=== PATIENT | female | born 1980 | race Caucasian/White ===

== ENCOUNTER 2016-06-17 08:23 | Inpatient (IN) | payer OTHER ==
[~2016-06-17] VITALS: Ht 162.6 cm; Wt 85.8 kg
[~2016-06-17 08:23] MED LIST: ACET325T45 PO
[2016-06-17 08:27] VITALS: Ht 162.6 cm; Wt 85.8 kg
[2016-06-17 09:00] VITALS: BP 140/86; PULSE 81; RESP 18
[2016-06-17] MEDS ORDERED: LACTATED RINGER'S 1,000 ML IV ONE ×2 (09:30→16:00)
[2016-06-17] MEDS ORDERED: TERBUTALINE 1 MG/ML INJ SC PRN (09:30)
[2016-06-17 09:38] LABS: URINE BLOOD (Dip) POC Trace-intact (NEGATIVE)
[2016-06-17 10:26] LABS: ADD UMIC YES; URINE BILIRUBIN (Dip) NEGATIVE (NEGATIVE); URINE BLOOD (Dip) NEGATIVE (NEGATIVE); URINE COLOR LT. YELLOW (YELLOW); URINE GLUCOSE (Dip) NEGATIVE (NEGATIVE); URINE KETONES (Dip) NEGATIVE (NEGATIVE); URINE LEUKOCYTE ESTERASE (Dip) TRACE (NEGATIVE); URINE NITRITE (Dip) NEGATIVE (NEGATIVE); URINE TOTAL PROTEIN (Dip) NEGATIVE (NEGATIVE); URINE UROBILINOGEN (Dip) 0.2 E.U./dL (0.1-1.0)
[2016-06-17 11:00] LABS: BACTERIA,URINE FEW; SQUAMOUS EPITHELIAL CELL,UR MODERATE; URINE RBCS NONE SEEN /HPF (0)
[2016-06-17] MEDS ORDERED: LACTATED RINGER'S 1,000 ML IV SCH (11:00)
[2016-06-17] MEDS ORDERED: OXYTOCIN 30 UNITS/LR 500 ML IV PRN (13:30)
[2016-06-17] MEDS ORDERED: MISOPROSTOL 200 MCG TAB PR PRN (13:30)
[2016-06-17] MEDS ORDERED: CEFAZOLIN 2 GM/50 ML (PMX) 50 ML IV SCH (13:30)
[2016-06-17] MEDS ORDERED: CARBOPROST 250 MCG INJ IM PRN (13:30)
[2016-06-17] MEDS ORDERED: METHYLERGONOVINE 0.2 MG INJ IM PRN (13:30)
[2016-06-17] MEDS ORDERED: OXYTOCIN 30 UNITS/LR 500 ML IV SCH (13:30)
[2016-06-17 14:15] LABS: BASOPHILS % 0.2 % (0.0-2.0); EOSINOPHILS % 0.3 % (0.0-7.0); HEMATOCRIT 38.2 % (37.0-47.0); HEMOGLOBIN 12.9 g/dl (12.0-16.0); LYMPHOCYTES # 1.8 10^3/ul (0.8-2.9); LYMPHOCYTES % 15.3 % (15.0-51.0); MEAN CORPUSCULAR HEMOGLOBIN 31.2 pg (29.0-33.0); MEAN CORPUSCULAR HGB CONC 33.8 g/dl (32.0-37.0); MEAN CORPUSCULAR VOLUME 92.4 fl (82.0-101.0); MEAN PLATELET VOLUME 7.8 fl (7.4-10.4); MONOCYTE # 0.7 10^3/ul (0.3-0.9); MONOCYTES % 6.2 % (0.0-11.0); NEUTROPHIL # 9.3 10^3/ul (1.6-7.5); PLATELET COUNT 279 10^3/UL (140-440); RED BLOOD COUNT 4.13 10^6/ul (4.20-5.40); RED CELL DISTRIBUTION WIDTH 12.9 % (11.5-14.5); UNCORRECTED WBC 11.9 10^3/ul (4.8-10.8); WHITE BLOOD COUNT 11.9 10^3/ul (4.8-10.8)
[2016-06-17 14:16] LABS: CONDITION 1
[2016-06-17 14:24] LABS: INR 0.91; PROTIME 12.2 Sec (12.2-14.2)
[2016-06-17 14:25] LABS: PARTIAL THROMBOPLASTIN TIME 26.4 Sec (25.0-35.0)
--- NOTE | 2016-06-17 14:36 | TRIAGE ---
OB Triage Datetime Report Generated by CPN: 06/17/2016 14:36 Datetime: 06/17/2016 12:53 Decelerations: Prolonged Category: Category II Comments: Prolonged decel lasting 180 seconds with daniella to 85 with FHR returning to baseline with minimal variability and greater than 15x15 accels. Pt repositioned far left lateral, Nonrebreather 10L applied, 300cc LR bolus started. Will continue to monitor pt closely. Datetime: 06/17/2016 12:05 Labor Evaluation Frequency: 2-12 Monitor Mode: External Duration (sec)2399: 50-100 Quality: Moderate Pattern: Normal: <= 5 Contractions in 10 Minutes Resting Tone [place]: Relaxed Heart Rate FHR Baseline Rate: 135 Monitor Mode: External US FHR Baseline Changes: No Baseline Change Variability: Moderate 6-25 bpm Accelerations: 15X15 Decelerations: None Category: Category I Pain Assessment Pain Scale: 4 Pain Presence: Intermittent Pain Type: Contraction; Pressure Pain Location: Back Pain Goal: 0 Pain Relief Measures: Comfort Measures Datetime: 06/17/2016 11:04 Labor Evaluation Frequency: 3-10 Monitor Mode: External Duration (sec)2399: 50-100 Quality: Moderate Pattern: Normal: <= 5 Contractions in 10 Minutes Resting Tone [place]: Relaxed Heart Rate FHR Baseline Rate: 135 Monitor Mode: External US FHR Baseline Changes: No Baseline Change Variability: Moderate 6-25 bpm Accelerations: 15X15 Decelerations: None Category: Category I Pain Assessment Pain Scale: 5 Pain Presence: Intermittent Pain Type: Contraction; Pressure Pain Location: Back Pain Goal: 2 Pain Relief Measures: Comfort Measures Datetime: 06/17/2016 10:37 Comments: US detecting FHR due to pt movement when MD entered room. US readjusted. Datetime: 06/17/2016 10:04 Labor Evaluation Frequency: 3-13 Monitor Mode: External Duration (sec)2399: 60-140 Quality: Moderate Pattern: Normal: <= 5 Contractions in 10 Minutes Resting Tone [place]: Relaxed Heart Rate FHR Baseline Rate: 135 Monitor Mode: External US FHR Baseline Changes: No Baseline Change Variability: Moderate 6-25 bpm Accelerations: 15X15 Decelerations: None Category: Category I Pain Assessment Pain Scale: 6 Pain Presence: Intermittent Pain Type: Contraction; Pressure Pain Location: Back Pain Goal: 2 Pain Relief Measures: Comfort Measures Datetime: 06/17/2016 09:51 Monitor Mode: External US Datetime: 06/17/2016 09:04 Labor Evaluation Frequency: 2-8 Monitor Mode: External Duration (sec)2399: 30-80 Quality: Moderate Pattern: Normal: <= 5 Contractions in 10 Minutes Resting Tone [place]: Relaxed Contraction Comments: Uterine irritability Heart Rate FHR Baseline Rate: 135 Monitor Mode: External US FHR Baseline Changes: No Baseline Change Variability: Moderate 6-25 bpm Accelerations: 15X15 Decelerations: None Category: Category I Pain Assessment Pain Scale: 6 Pain Presence: Intermittent Pain Type: Contraction; Pressure Pain Location: Back Pain Goal: 0 Pain Relief Measures: Comfort Measures Datetime: 06/17/2016 08:35 Vaginal Exam Dilatation (cms): 0.0 Effacement (%): 0 Station: -2 Exam By: Shante ABRAHAM Membrane Status: Intact Datetime: 06/17/2016 08:33 EGA: 38.4 Contractions: Denies/Absent Rupture of Membranes: Denies Vaginal Discharge: Denies Datetime: 06/17/2016 08:31 Monitor Mode: External US Datetime: 06/17/2016 08:30 Assessment Type: Triage Maternal Assessment Level of Consciousness: Fully Conscious DTR's/Clonus: DTRs 2+; No Clonus Headache: Denies Blurred Vision: No Respiratory Effort: Unlabored; Regular Rhythm; Equal Expansion Breath Sounds, Left: Clear and Equal Breath Sounds, Right: Clear and Equal Nausea/Vomiting: Denies RUQ Epigastric Pain: Denies Lower Extremities Edema: Bilateral Lower Extremities Degree: 1+ Upper Extremities Edema: None Degree: None Facial Edema: None Fall Risk Assessment History of Falling: (0) No Secondary Diagnosis: (0) No Ambulatory Aid: (0) Bedrest/Nurse Assist IV Therapy: (0) No Gait: (0) Normal/Bedrest/Immobile Mental Status: (0) Oriented to Own Ability Fall Score: 0 Fall Risk Score Definition: No Risk: No action required Datetime: 06/17/2016 08:28 Time of Arrival: 06/17/2016 08:19 Arrived By: Wheelchair Arrived From: Emergency Dept Chief Complaint: UC Movement: Present Contractions: Denies/Absent Rupture of Membranes: Denies Vaginal Discharge: Denies Recent Sexual Intercouse: Denies Abdominal Trauma: Not Applicable Patient Complaints: Contractions Time Provider Notified: 06/17/2016 08:57 Provider Notified: [facility] Initial Plan: IV hydration, Terbutaline 0.25mg SC x2 PRN, UA, Urine culture Datetime: 06/17/2016 08:24 Stage of : OB Triage
[2016-06-17] MEDS ORDERED: ONDANSETRON 4 MG INJ IV STA (15:53)
[2016-06-17] MEDS ORDERED: CITRIC ACID/NA CITRATE 30 ML CUP PO ONE (16:00)
[2016-06-18] MEDS: LACTATED RINGER'S 1,000 ML IV SCH ×3 (07:07→09:43)
[2016-06-18] MEDS ORDERED: EPHEDrine SULFATE 50 MG/5 ML SYG ONE (10:04)
[2016-06-18] MEDS ORDERED: morphine SULFATE/PF (10 MG/10 ML) INJ ONE (10:05)
[2016-06-18] MEDS ORDERED: PHENYLephrine (100 MCG/ML) 5ML SYG ONE ×2 (10:05→10:53)
[2016-06-18] MEDS ORDERED: FENTAnyl 50 MCG/ML VIAL ONE (10:05)
[2016-06-18] MEDS ORDERED: ONDANSETRON 4 MG INJ ONE (10:22)
[2016-06-18] MEDS ORDERED: DIPHENHYDRAMINE 50 MG INJ ONE (10:22)
[2016-06-18] MEDS ORDERED: PROPOFOL 20 ML ONE (11:11)
[2016-06-18] MEDS ORDERED: DIPHENHYDRAMINE 50 MG INJ IV PRN (11:30)
[2016-06-18] MEDS ORDERED: ONDANSETRON 4 MG INJ IV PRN (11:30)
[2016-06-18] MEDS ORDERED: ZOLPIDEM 5 MG TAB PO PRN (11:30)
[2016-06-18] MEDS ORDERED: HYDROmorphONE 1 MG/ML SYG IV PRN (11:30)
[2016-06-18] MEDS ORDERED: NALOXONE (0.4 MG/ML) INJ IV PRN (11:30)
--- NOTE | 2016-06-18 12:03 | HP ---
Date/Time of Note Date/Time of Note DATE: 06/18/16 TIME: 11:38 OB - History Hx of Present Free Text/Dictation This is a 36 years old female admitted to [facility] on June 17 due to a 2-1/2 minutes variable deceleration for extended observation this patient originally was scheduled for repeat and bilateral tubal ligation at her 39 weeks of gestation , due to this prolonged variable deceleration perinatologist recommends delivery at this time which makes the gestational age 38 weeks 5/ 7 day. She has been counseled regarding the delivery for the third time and bilateral tubal ligation the failure rate ,increased risk of ectopic future failure to conceive, also complication of including but not limited to bowel and bladder injury ,infection wound hematoma she would like to proceed with the operation. This patient has been under the care of [facility] and her was not complicated with gestational diabetes -induced hypertension or any other surgical or medical conditions Denies allergy to any known medication Denies a smoking or drinking Family history, unremarkable Review of system within normal Physical examination 5 feet 4 inches tall 85 kg Temperature 98.5 pulse 82 respiration 18 blood pressure 120/71 Head ears nose and throat negative Neck, supple no thyromegaly Lungs clear to P&A Heart, normal sinus rhythm no murmur Abdomen fundal height from symphysis pubis to the height of the fundus 38 cm heart rate category 1 mild contraction 2-12 minutes Pelvic examination, deferred Extremity, no edema no varicosities Impression intrauterine at 38 weeks 5/7 day history of 2 previous section request for voluntary sterilization bilateral tubal ligation patient has been counseled regarding the failure rate of tubal ligation increased risk of ectopic and future failure to conceive and complication that may arise from the surgery including but not limited to bowel and bladder injury wound infection and hematoma and patient would like to proceed with the surgery Estimated Due Date: Jun 26, 2016 : 3 Para: 2 Care: Good Care Ultrasounds: Normal mid trimester US Obstetrical Complications: None Medical Complications: None Past Family/Social History * Past Medical, Surgical, Family and Obstetric Histories reviewed from chart. Rubella: immune RPR/VDRL: Negative GBS Status: Negative HBsAG: Negative OB Admission Exam Vital Signs Vital Signs Vital Signs Date Time Temp Pulse Resp B/P Pulse Ox O2 Delivery O2 Flow Rate FiO2 1/25/17 09:00 97.7 81 18 140/86 Room Air Physical Exam HEENT: WNL Heart: Rhythm Normal Lungs: Clear, Equal Abdomen: WNL Extremities: Normal Cervical Dilatation: None Effacement: 0% Membranes: Intact Heart Rate: 130's Decelerations: Variable Decelerations Contractions on Admission: None Last 72 hours Lab Results CBC & BMP 06/17/16 13:50 MARICARMEN AUSTIN MD Jun 18, 2016 12:01
--- NOTE | 2016-06-18 12:28 | DELSUM ---
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 Babies in Womb: 1 Attempted: No Labor Anesthesia: None LABOR INFORMATION Reason for Induction: Not Applicable Oxytocin: N/A Group B Beta Strep: Negative Antibiotics # of Doses: 1 Antibiotics Time of Last Dose: 1025 Steroids Given: None Reason Steroids Not Administered: Not Applicable MEMBRANES Membranes Rupture Method: Artificial Rupture of Membranes: 06/18/2016 10:35 Length of Rupture (hr): 0.02 Amniotic Fluid Color: Clear Amniotic Fluid Amount: Moderate Amniotic Fluid Odor: Normal STAGES OF LABOR Stage 3 hr: 0 Stage 3 min: 1 VAGINAL DELIVERY Episiotomy: None Laceration Extension: N/A Laceration Type: None CSECTION DELIVERY Primary Indication: Repeat Elective Secondary Indication: Prolong Decel Phase CSection Urgency: Elective CSection Incidence: Repeat Labor: N/A Elective: Elective CSection Incision: Lower Uterine Transverse Sterilization Procedure: Emily BABY A INFORMATION Infant Delivery Date/Time: 06/18/2016 10:36 Method of Delivery: Born in Route : No : N/A Forceps: N/A Vacuum Extraction: N/A Shoulder Dystocia : N/A SHOULDER DYSTOCIA BABY A Delivery Date/Time: 06/18/2016 10:36 PRESENTATION/POSITION BABY A Presentation: Cephalic Cephalic Presentation: Vertex Vertex Position: Left Occipital Anterior Breech Presentation: N/A PLACENTA INFORMATION BABY A Placenta Delivery Time : 06/18/2016 10:37 Placenta Method of Delivery: Manual Removal Placenta Status: Delivered SCORES BABY A Heart Rate 1 min: >100 bpm Resp Effort 1 min: Good Cry Reflex Irritability 1 min: Cough/Sneeze/Pulls Away Muscle Tone 1 min: Active Motion Color 1 min: Body [place], Extremit Blue Resuscitation Effort 1 min: Tactile Stimulation SCORE 1 MIN: 9 Heart Rate 5 min: >100 bpm Resp Effort 5 min: Good Cry Reflex Irritability 5 min: Cough/Sneeze/Pulls Away Muscle Tone 5 min: Active Motion Color 5 min: Body [place], Extremit Blue Resuscitation Effort 5 min: Tactile Stimulation SCORE 5 MIN: 9 INFORMATION BABY A Gestational Age at Delivery: 38.5 Gestational Status: Early Term- 37- 38.6 Weeks Outcome : Liveborn Condition : Stable Sex: Male IDENTIFICATION/MEDS BABY A ID Band Number: [id number] ID Band Location: Right Leg; Left Arm Sensor Applied: Yes Sensor Number: [id number] Sensor Location : Cord Clamp Vitamin K Given : Not Given Erythromycin Given: Not Given WEIGHT/LENGTH BABY A Birthweight (gm): 3330 Infant Weight (lb): 7 Infant Weight (oz): 5 Length (in): 20.00 Length (cm): 50.80 CORD INFORMATION BABY A No. Cord Vessels: 3 Nuchal Cord : N/A Cord Blood Taken: Yes Suction: Mouth; Nose ASSESSMENT BABY A Infant Complications: None Physical Findings at Delivery: Within Normal Limits Infant Respirations: Appears Normal Remnant Sorter/ALS Called : No Care By: Kasey Santillan RN Transferred To: Remains with Mother
--- NOTE | 2016-06-18 12:40 | OPR ---
DATE OF OPERATION: 06/18/2016 PREOPERATIVE DIAGNOSES: Intrauterine at 38 weeks and 5/7. complicated with variable decelerations, 2 1/2 minutes. Recommendation by the perinatologist for delivery. Requests bilateral tubal ligation at the time of section. POSTOPERATIVE DIAGNOSIS DIAGNOSES: Intrauterine at 38 weeks and 5/7. complicated with variable decelerations, 2 1/2 minutes. Recommendation by the perinatologist for delivery. Requests bilateral tubal ligation at the time of section. OPERATION PERFORMED: Repeat transverse low cervical section and bilateral tubal ligation. SURGEON: Maricarmen Harrison MD PRODUCE ASSOCIATE: Dr. Radha Krishna ANESTHESIA: Spinal. ANESTHESIOLOGIST: Dr. Hong FINDINGS: Live baby boy, 's of 9 and 9. Baby weighed 3330 grams, equal to 7 pounds 5 ounces. DETAILS OF THE PROCEDURE: Under satisfactory spinal anesthesia the patient was prepped and draped and placed in the supine position, tilted to the left. A Pfannenstiel incision was made, carried through the subcutaneous tissue. Bleeders were brought under control with electrocautery. Fascia was incised to the length of the incision. Rectus muscle was divided in the midline. Peritoneum was exposed, entered through a transverse incision. There were some loose adhesions between the omentum, the anterior uterine wall and anterior abdominal wall, which were taken down by the sharp and blunt dissection. The lower segment of the uterus was exposed. A bladder flap was developed. A transverse incision was made in the lower segment of the uterus. Amniotic sac ruptured. Clear amniotic fluid was noted. A live baby boy was delivered from an unengaged vertex from alex position. Nasal oropharyngeal suction was performed. The baby was handed to the team for immediate attention. The patient received 20 units of Pitocin. The placenta delivered manually intact. The uterine cavity was cleaned with a wet sponge and drainage was established. Uterus was closed in 2 layers using Monocryl #1 in continuous fashion. Bilateral tubal ligation was performed by identifying the fimbria and the ampullar section of the right fallopian tube. Suture material used, #0 plain catgut, which was reinforced with the same suture material, and the fimbria and the ampullar portion of the right fallopian tube was excised and the specimen was submitted for pathology. The same procedure was performed for the opposite side. The peritoneal cavity was irrigated with warm saline. Sponge, needle and instruments were reported to be correct. The abdominal peritoneum was closed with 2-0 chromic catgut continuously. Rectus muscle was approximated with a few interrupted 2-0 chromic catgut. Fascia was closed with #1 PDS in a continuous fashion. The subcutaneous tissue was irrigated with warm saline and approximated with a few interrupted 2-0 chromic catgut. The skin was closed with danna. Estimated blood loss was 600 mL. Urine bag contained 200 mL of clear urine. Patient tolerated the procedure well and was transferred to the recovery room in good condition. Dictated By: MARICARMNE TILLMAN/KEVIN Conf#: [id number] DID#: [id number] MTDD
[2016-06-18] MEDS: KETOROLAC 30 MG INJ IV PRN (13:35)
[2016-06-18 14:10] VITALS: BP 111/70; PULSE 66; RESP 18
[2016-06-18] MEDS ORDERED: OXYCODONE/ACETAMINOPHEN (5/325) TAB PO PRN (14:30)
[2016-06-18] MEDS ORDERED: OXYTOCIN 30 UNITS/LR 500 ML IV PRN (14:30)
[2016-06-18] MEDS ORDERED: CARBOPROST 250 MCG INJ IM PRN (14:30)
[2016-06-18] MEDS ORDERED: METHYLERGONOVINE 0.2 MG INJ IM PRN (14:30)
[2016-06-18] MEDS ORDERED: MISOPROSTOL 200 MCG TAB PR PRN (14:30)
[2016-06-18] MEDS ORDERED: ACETAMINOPHEN/CODEINE #3 TAB PO PRN ×2 (14:30)
[2016-06-18] MEDS ORDERED: LANOLIN 7 GM TUBE TOP PRN (14:30)
[2016-06-18] MEDS ORDERED: CEFAZOLIN 1 GM/50 ML (PMX) 50 ML IVPB SCH ×2 (14:30→18:30)
[2016-06-18] MEDS: HYDROmorphONE 1 MG/ML SYG IV PRN ×2 (14:43→18:15)
[2016-06-18] MEDS: OXYTOCIN 30 UNITS/LR 500 ML IV SCH ×3 (14:43→23:43)
[2016-06-18 15:45] VITALS: BP 115/64; PULSE 73; RESP 18
[2016-06-18 19:45] VITALS: BP 121/71; PULSE 76; RESP 18
[2016-06-19] VITALS: BP 125/73; PULSE 80; RESP 18
[2016-06-19] MEDS: OXYTOCIN 30 UNITS/LR 500 ML IV SCH ×6 (02:23→22:23)
[2016-06-19 04:00] VITALS: BP 127/79; PULSE 90; RESP 18
[2016-06-19] MEDS: KETOROLAC 30 MG INJ IV PRN (05:27)
[2016-06-19 08:04] LABS: BASOPHILS % 0.4 % (0.0-2.0); EOSINOPHILS # 0.1 10^3/ul (0.0-0.5); EOSINOPHILS % 0.8 % (0.0-7.0); HEMATOCRIT 34.4 % (37.0-47.0); HEMOGLOBIN 11.9 g/dl (12.0-16.0); LYMPHOCYTES # 1.7 10^3/ul (0.8-2.9); LYMPHOCYTES % 13.8 % (15.0-51.0); MEAN CORPUSCULAR HEMOGLOBIN 31.8 pg (29.0-33.0); MEAN CORPUSCULAR HGB CONC 34.5 g/dl (32.0-37.0); MEAN CORPUSCULAR VOLUME 92.2 fl (82.0-101.0); MEAN PLATELET VOLUME 7.9 fl (7.4-10.4); MONOCYTE # 0.9 10^3/ul (0.3-0.9); MONOCYTES % 7.8 % (0.0-11.0); NEUTROPHIL # 9.3 10^3/ul (1.6-7.5); NEUTROPHILS % 77.2 % (39.0-77.0); PLATELET COUNT 260 10^3/UL (140-440); RED BLOOD COUNT 3.73 10^6/ul (4.20-5.40); RED CELL DISTRIBUTION WIDTH 13.5 % (11.5-14.5)
[2016-06-19 08:08] LABS: CONDITION 1
[2016-06-19 08:20] VITALS: BP 100/61; PULSE 87; RESP 16
[2016-06-19] MEDS: SENNA/DOCUSATE NA (8.6MG/50MG) TAB PO SCH ×2 (08:56→21:29)
[2016-06-19] MEDS: OXYCODONE/ACETAMINOPHEN (5/325) TAB PO PRN ×2 (11:13→16:27)
[2016-06-19] MEDS: IBUPROFEN 600 MG TAB PO SCH ×3 (12:44→23:28)
--- NOTE | 2016-06-19 13:30 | PN ---
Date/Time of Note Date/Time of Note DATE: 06/19/16 TIME: 13:29 OB Subjective Subjective Subjective Post day 1 Afebrile vital sign a stable abdomen soft mildly distended bowel sounds present incision dry lochia normal extremity normal ambulation encouraged Laboratory Tests Test 06/19/16 06:25 Basophils # 0.010^3/ul Basophils % 0.4% Eosinophils # 0.110^3/ul Eosinophils % 0.8% Hematocrit 34.4% Hemoglobin 11.9g/dl Lymphocytes # 1.710^3/ul Lymphocytes % 13.8% Mean Corpuscular Hemoglobin 31.8pg Mean Corpuscular Hemoglobin Concent 34.5g/dl Mean Corpuscular Volume 92.2fl Mean Platelet Volume 7.9fl Monocytes # 0.910^3/ul Monocytes % 7.8% Neutrophils # 9.310^3/ul Neutrophils % 77.2% Nucleated Red Blood Cells # 0.010^3/ul Nucleated Red Blood Cells % 0.0/100WBC Platelet Count 23620^3/UL Red Blood Count 3.7310^6/ul Red Cell Distribution Width 13.5% White Blood Count 12.010^3/ul Current Medications Medications (Trade) Dose Ordered Sig/Joey Route PRN Reason Start Time Stop Time Status Last Admin Dose Admin Lactated Ringer's (Lr) 1,000 ml @ 1,000 mls/hr Q1H ONCE IV 06/17/16 09:30 06/17/16 09:31 DC 06/17/16 09:27 Terbutaline Sulfate 0.25 mg 0.25 mg PRN PRN SC PAIN 06/17/16 09:30 06/17/16 13:12 DC 06/17/16 10:22 Lactated Ringer's 1,000 ml @ 125 mls/hr Q8H IV 06/17/16 11:00 06/17/16 13:12 DC 06/17/16 11:00 Lactated Ringer's 1,000 ml @ 125 mls/hr Q8H IV 06/17/16 13:07 06/18/16 14:27 DC 06/18/16 09:43 Cefazolin Sodium/ Dextrose 50 ml @ 100 mls/hr ONCE IV 06/17/16 13:30 06/18/16 14:27 DC Oxytocin/Lactated Ringer's 500 ml @ 125 mls/hr ONCE IV 06/17/16 13:30 06/18/16 14:27 DC 06/18/16 12:57 Oxytocin/Lactated Ringer's 500 ml @ 0 mls/hr ONCE PRN IV For Hemorrhage Management 06/17/16 13:30 06/18/16 14:27 DC Methylergonovine Maleate (Methergine) 0.2 mg ONCE PRN IM VAGINAL BLEEDING 06/17/16 13:30 06/18/16 14:28 DC Carboprost Tromethamine (Hemabate) 250 mcg ONCE PRN IM VAGINAL BLEEDING 06/17/16 13:30 06/18/16 14:28 DC Misoprostol (Cytotec) 1,000 mcg ONCE PRN TX VAGINAL BLEEDING 06/17/16 13:30 06/18/16 14:28 DC Ondansetron HCl (Zofran Inj) 4 mg ONCE STAT IV 06/17/16 15:53 06/17/16 15:55 DC 06/17/16 17:06 Citric Acid/ Sodium Citrate 30 ml 30 ml ONCE ONCE PO 06/17/16 16:00 06/17/16 16:01 DC 06/17/16 17:05 Lactated Ringer's (Lr) 1,000 ml @ 1,000 mls/hr Q1H ONCE IV 06/17/16 16:00 06/17/16 16:59 DC 06/17/16 17:06 Ephedrine Sulfate 50 mg STK-MED ONCE .ROUTE 06/18/16 10:04 06/18/16 10:05 DC Fentanyl (Sublimaze) 100 mcg STK-MED ONCE .ROUTE 06/18/16 10:05 06/18/16 10:06 DC Morphine Sulfate (Duramorph) 10 mg STK-MED ONCE .ROUTE 06/18/16 10:05 06/18/16 10:06 DC Phenylephrine HCl (Sebastian-Synephrine Inj Syg) 500 mcg STK-MED ONCE .ROUTE 06/18/16 10:05 06/18/16 10:06 DC Ondansetron HCl (Zofran Inj) 4 mg STK-MED ONCE .ROUTE 06/18/16 10:22 06/18/16 10:23 DC Diphenhydramine HCl (Benadryl) 50 mg STK-MED ONCE .ROUTE 06/18/16 10:22 06/18/16 10:23 DC Phenylephrine HCl 500 mcg 500 mcg STK-MED ONCE .ROUTE 06/18/16 10:53 06/18/16 10:54 DC Propofol (Diprivan) 20 ml @ ud STK-MED ONCE .ROUTE 06/18/16 11:11 06/18/16 11:12 DC Naloxone HCl (Narcan) 0.1 mg Q2M PRN IV FOR RESP RATE 8 OR LESS 06/18/16 11:30 06/19/16 11:29 DC Ketorolac Tromethamine (Toradol) 30 mg Q6H PRN IV PAIN 06/18/16 11:30 06/19/16 11:29 DC 06/19/16 05:27 Hydromorphone HCl (Dilaudid) 0.2 mg Q3H PRN IV PAIN LEVEL 1-5 06/18/16 11:30 06/19/16 11:29 DC Hydromorphone HCl (Dilaudid) 0.4 mg Q3H PRN IV PAIN LEVEL 6-10 06/18/16 11:30 06/19/16 11:29 DC 06/18/16 18:15 Diphenhydramine HCl (Benadryl) 25 mg Q6H PRN IV ITCHING 06/18/16 11:30 06/19/16 11:29 DC Ondansetron HCl (Zofran Inj) 4 mg Q6H PRN IV NAUSEA AND/OR VOMITING 06/18/16 11:30 06/19/16 11:29 DC 06/18/16 18:15 Zolpidem Tartrate (Ambien) 5 mg HS MAY REPEAT X 1 PRN PO INSOMNIA 06/18/16 11:30 06/19/16 11:29 DC Acetaminophen/ Codeine Phosphate (Tylenol No.3) 1 tab Q4H PRN PO PAIN LEVEL 4-6 06/18/16 14:30 Acetaminophen/ Codeine Phosphate (Tylenol No.3) 2 tab Q4H PRN PO PAIN LEVEL 7-10 06/18/16 14:30 Oxycodone/ Acetaminophen (Percocet (5/ 325)) 1 tab Q4H PRN PO PAIN LEVEL 4-6 06/18/16 14:30 Oxycodone/ Acetaminophen (Percocet (5/ 325)) 2 tab Q4H PRN PO PAIN LEVEL 7-10 06/18/16 14:30 06/19/16 11:13 Ibuprofen (Motrin) 600 mg Q6 PO 06/19/16 12:00 06/19/16 12:44 Simethicone (Mylicon) 160 mg Q8H PRN PO DISTENSION/GAS/BLOATING 06/18/16 14:30 Senna/Docusate Sodium (Senokot-S) 1 tab BID PO 06/19/16 09:00 06/19/16 08:56 Lanolin (Yst-R-Lqtrnv) 1 applic BEDSIDE MEDICATION PRN TOP BEDSIDE FOR DEMARCUS TO NIPPLES 06/18/16 14:30 Diphtheria/ Tetanus/Acell Pertussis 0.5 ml 0.5 ml ONCE ONCE IM* 06/21/16 09:00 06/21/16 09:01 Oxytocin/Lactated Ringer's 500 ml @ 0 mls/hr ONCE PRN IV For Hemorrhage Management 06/18/16 14:30 Methylergonovine Maleate (Methergine) 0.2 mg ONCE PRN IM VAGINAL BLEEDING 06/18/16 14:30 Carboprost Tromethamine (Hemabate) 250 mcg ONCE PRN IM VAGINAL BLEEDING 06/18/16 14:30 Misoprostol 1000 mcg 1,000 mcg ONCE PRN TX VAGINAL BLEEDING 06/18/16 14:30 Cefazolin Sodium 50 ml @ 100 mls/hr ONCE IVPB 06/18/16 14:30 06/18/16 14:30 DC Oxytocin/Lactated Ringer's 500 ml @ 125 mls/hr Q4H IV 06/18/16 14:23 06/18/16 23:43 Cefazolin Sodium (Ancef 1 Gm/50 ml (Pmx)) 50 ml @ 100 mls/hr ONCE IVPB 06/18/16 18:30 06/18/16 18:59 DC 06/18/16 18:15 MARICARMEN AUSTIN MD Jun 19, 2016 13:30
[2016-06-19 16:00] VITALS: BP 107/68; PULSE 86; RESP 16
[2016-06-19 20:15] VITALS: BP 107/60; PULSE 81; RESP 18
[2016-06-20] MEDS: OXYCODONE/ACETAMINOPHEN (5/325) TAB PO PRN ×5 (00:38→22:17)
[2016-06-20] MEDS: OXYTOCIN 30 UNITS/LR 500 ML IV SCH ×6 (02:23→22:23)
[2016-06-20 03:58] VITALS: BP 118/61; PULSE 88; RESP 18
[2016-06-20] MEDS: IBUPROFEN 600 MG TAB PO SCH ×4 (05:38→18:52)
[2016-06-20 08:00] VITALS: BP 107/58; PULSE 77; RESP 18
[2016-06-20] MEDS: SENNA/DOCUSATE NA (8.6MG/50MG) TAB PO SCH ×2 (08:24→22:16)
[2016-06-20 16:00] VITALS: BP 129/74; PULSE 83; RESP 18
[2016-06-20 19:30] VITALS: BP 110/75; PULSE 73; RESP 20
--- NOTE | 2016-06-20 22:51 | QN ---
Documentation Comment POD #2 s/p repeat c/s. Pt doing well. Has adequate pain relief, and has no c/o. T= 97.8. BP = 110/75. Incision C/D/I.No evidence of infection. Lochia minimal. Extremities NT, 1+ edema. P: D/C home tomorrow. LANCE RICE MD Jun 20, 2016 22:51
[2016-06-21] MEDS: IBUPROFEN 600 MG TAB PO SCH ×2 (00:06→04:52)
[2016-06-21] MEDS: OXYTOCIN 30 UNITS/LR 500 ML IV SCH ×2 (02:23→06:14)
[2016-06-21 04:00] VITALS: BP 105/65; PULSE 78; RESP 20
[2016-06-21 08:04] VITALS: BP 118/70; PULSE 77; RESP 16
[2016-06-21] MEDS ORDERED: DIPHTH/TET/ACEL PERTUSS (ADULT) 0.5 ML VIAL IM* ONE (09:00)
[2016-06-21] MEDS: SENNA/DOCUSATE NA (8.6MG/50MG) TAB PO SCH (09:26)
[2016-06-21] MEDS: OXYCODONE/ACETAMINOPHEN (5/325) TAB PO PRN (09:27)
[2016-06-21] MEDS ORDERED: NA PHOSPHATE/BIPHOS 133 ML ENEMA PR ONE (10:30)
--- NOTE | 2016-06-21 10:33 | PD.PPDC ---
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
--- NOTE | 2016-06-21 10:40 | DS ---
Date/Time of Note Date/Time of Note DATE: 06/21/16 TIME: 10:37 Obstetrical Discharge Record Final Diagnosis Final Diagnosis: Term delivered Section Section: Primary Condition on Discharge Physical Assessment Last Vitals: Afebrile vital sign is stable abdomen soft uterus firm lochia normal incision dry extremity no bowel movement recommended fleets enema then may discharge home with follow-up instruction to be seen at the clinic in 4 days Voiding: Yes Bowel Movement: No Breast: Soft, non-tender Fundus: Firm Abdomen and Incision: Dry healing well Calf Tenderness: No Patient Condition: Good MARICARMEN AUSTIN MD Jun 21, 2016 10:40
== END 2016-06-21 12:10 | disposition home or self-care (01) | DRG 766 ==
LOC: OBT 08:23 → L-D 08:24 → OBT 13:09 → L-D 13:12 → PP1 06-18 14:12
PROVIDERS: ADMIT Obstetrics & Gynecology; ATTEND Obstetrics & Gynecology
PROC: 0UL70ZZ Occlusion of Bilateral Fallopian Tubes, Open Approach (ICD-10-PCS; 2016-06-18)
PROC: 10D00Z1 Extraction of Products of Conception, Low, Open Approach (ICD-10-PCS; principal; 2016-06-18 10:30)
DX: O34.211 Maternal care for low transverse scar from previous cesarean delivery (principal); Z30.2 Encounter for sterilization; Z3A.38 38 weeks gestation of pregnancy; Z37.0 Single live birth
CPT/HCPCS: 36415; 81001; 81003; 85025; 85610; 85730; 86592; 86850; 86900; 86901; 87086; 87340; 88302; 90715; 94760; 96372; 99464; G0463; J0690; J1170; J1200; J1885; J2274; J2370; J2405; J2590; J3010; J3105; J7120